=== PATIENT | female | born 1995 | race Caucasian/White ===

== ENCOUNTER 2016-10-13 06:00 | Inpatient (IN) | payer BC ==
[2016-10-20] MEDS ORDERED: OXYTOCIN 10 UNIT/ML 1 ML VIAL IM PRN (06:55)
[2016-10-20] MEDS ORDERED: TERBUTALINE 1 MG/ML VIAL SQ PRN (06:55)
[2016-10-20] MEDS ORDERED: LIDOCAINE 1% (PF) 10 MG/ML (30 ML SDV) SQ PRN (06:55)
[2016-10-20] MEDS ORDERED: METHYLERGONOVINE 0.2 MG/ML 1 ML AMP IM PRN (06:55)
[2016-10-20] MEDS ORDERED: CARBOPROST TROMETHAMINE 250 MCG/ML 1 ML AMP IM PRN (06:55)
[2016-10-20] MEDS ORDERED: PENICILLIN G POTASSIUM 5,000,000 UNIT in DEXTROSE 5% IN WATER 100 ML IV STA ×2 (06:55)
[2016-10-20] MEDS: LACTATED RINGERS 1,000 ML IV SCH ×2 (07:00→09:08)
[2016-10-20] MEDS ORDERED: OXYTOCIN 30 UNITS/500 ML NS 30 UNIT in SALINE 1 500ML.BAG IV SCH ×2 (07:00→15:30)
[2016-10-20 07:08] LABS: Basophils # (A) 0.1 k/uL (0-0.2); Basophils % (A) 1 %; CH 22.3; CHCM 32.2; Eosinophils # (A) 0.3 k/uL (0-0.7); Eosinophils % (A) 2 %; HDW 3.72; HGB 10.3 gm/dL (11.4-16.0); Hypochromasia Moderate; Luc # (Auto) 0.19; Luc % (Auto) 1; Lymphocytes # (A) 2.2 k/uL (1.0-4.8); Lymphocytes % (A) 15 %; MCH 21.8 pg (25.0-35.0); MCHC 31.2 g/dL (31.0-37.0); MCV 69.8 fL (80.0-100.0); Microcytosis Moderate; Monocytes # (A) 0.7 k/uL (0-1.0); Monocytes % (A) 5 %; Neutrophils # (A) 11.3 k/uL (1.3-7.7); Neutrophils % (A) 77 %; Poikilocytosis Slight; RBC 4.73 m/uL (3.80-5.40); RDW 14.5 % (11.5-15.5); WBC 14.8 k/uL (3.8-10.6); WBC (Perox) 15.21
[2016-10-20 07:27] VITALS: BMI 30.4
[2016-10-20] MEDS ORDERED: fentaNYL (PF) 50 MCG/ML 5 ML AMP ONE (08:47)
[2016-10-20] MEDS ORDERED: ePHEDrine 50 MG/ML 1 ML AMP ONE (08:47)
[2016-10-20] MEDS ORDERED: SODIUM CHLORIDE 0.9% 100 ML BAG ONE (08:47)
[2016-10-20] MEDS ORDERED: BUPIVACAINE (PF) 0.25% 30 ML VIAL ONE (08:47)
[2016-10-20] MEDS ORDERED: BUPIVACAINE (PF) 0.25% 25 ML, fentaNYL (PF) 200 MCG in SODIUM CHLORIDE 0.9% 71 ML EPIDURAL ONE (09:07)
[2016-10-20] MEDS: PENICILLIN G POTASSIUM 2,500,000 UNIT in DEXTROSE 5% IN WATER 100 ML IV SCH ×6 (11:19→19:57)
[2016-10-20] MEDS ORDERED: BENZOCAINE/MENTHOL SPRAY 1 GM/SPRAY AEROSOL TOPICAL PRN ×2 (15:06→15:23)
[2016-10-20] MEDS ORDERED: diphenhydrAMINE 50 MG CAP PO PRN (15:23)
[2016-10-20] MEDS ORDERED: HYDROCORTISONE 2.5% RECTAL CREAM 30 GM TUBE RECTAL PRN (15:23)
[2016-10-20] MEDS ORDERED: diphenhydrAMINE 25 MG CAP PO PRN (15:23)
[2016-10-20] MEDS ORDERED: ZOLPIDEM 5 MG TAB PO PRN (15:23)
[2016-10-20] MEDS ORDERED: MEASLES-MUMPS-RUBELLA VACC/PF 12,500 UNIT/0.5 ML VIAL SQ ONE (15:23)
[2016-10-20] MEDS ORDERED: WITCH HAZEL 1 EACH MED..PAD TOPICAL PRN (15:23)
[2016-10-20] MEDS ORDERED: diphenhydrAMINE 50 MG/ML 1 ML VIAL IVP PRN ×2 (15:23)
[2016-10-20] MEDS ORDERED: LANOLIN CREAM 5 GM TUBE TOPICAL PRN (15:23)
[2016-10-20] MEDS ORDERED: SIMETHICONE 80 MG CHEWABLE PO PRN (15:23)
[2016-10-20] MEDS ORDERED: Acetaminophen-Codeine 300-30mg TAB PO PRN (15:23)
[2016-10-20] MEDS ORDERED: ACETAMINOPHEN TAB 325 MG TAB PO PRN (15:23)
--- NOTE | 2016-10-20 15:23 | P.HPOB ---
History of Present Illness H&P Date: 10/20/16 Chief Complaint: 40-2/7 weeks induction, early labor The patient is a 21-year-old 1 para 0 admitted at 40-2/7 weeks as established by last menstrual period and confirmed by 9 week ultrasound. She is admitted for induction of labor but is found actually be in early labor as her cervix is Jose dilated to 6-7 cm. 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 She additionally is known to be rubella nonimmune. Lastly she was found to have group B strep and therefore will require antibody prophylaxis. On labor and delivery, all signs are reassuring. Obstetrical history: 1 para 0 with current statistics listed in history of present illness. EDC of 10/18/2016 was established by last menstrual period and confirmed by 19 week ultrasound. Laboratory workup done traits of blood type of A+ with a negative antibody screen. Again she is known to carry the trait for beta thalassemia minor and as result, has subsequent anemia and her labs. Remainder of the laboratory workup was within normal limits aside from rubella status being nonimmune. One hour Glucola was normal and group B strep status is positive. Gynecologic history: Unremarkable with no history of any infections to include STDs. Review of Systems Review of systems is confined to history of present illness. Past Medical History Additional Past Medical History / Comment(s): ADHD, thalassemia carrier History of Any Multi-Drug Resistant Organisms: None Reported Additional Past Surgical History / Comment(s): 2010 ovarian cyst removal. Past Anesthesia/Blood Transfusion Reactions: No Reported Reaction Past Psychological History: ADD/ADHD Smoking Status: Current every day smoker Past Alcohol Use History: None Reported Past Drug Use History: None Reported - Past Family History Mother Family Medical History: Diabetes Mellitus, Hyperlipidemia Additional Family Medical History / Comment(s): Hypothyroidism after goiter removal Medications and Allergies Home Medications Medication Instructions Recorded Confirmed Type Dextroamphetamine/Amphetamine 30 mg PO QAM 10/16/16 10/20/16 History [Adderall Xr] Lansoprazole [Prevacid] 15 mg PO DAILY 10/16/16 10/20/16 History Vit No.78/Iron/FA [Pretab 1 tab PO DAILY 10/16/16 10/20/16 History 29 mg-1 mg Tablet] Allergies Allergy/AdvReac Type Severity Reaction Status Date / Time No Known Allergies Allergy Verified 10/20/16 06:53 Exam - Vital Signs Vital signs: Vital Signs Temp Pulse Resp BP 10/20/16 06:51 97.6 F 108 H 17 131/69 Intake and Output 10/20/16 10/20/16 10/20/16 06:59 14:59 22:59 Output Total 100 Balance -100 Output: Urine 100 Other: Weight 84.368 kg In general, this is a well-developed, well-nourished white female in no acute distress. Her heart has a regular rhythm and rate without murmur. Her lungs are clear to auscultation bilaterally in all dorman. Her abdomen is gravid, nondistended, has normal active bowel sounds, is soft, nontender, and without any palpable masses aside from the uterine fundus. Her extremities are without any cyanosis, clubbing, or edema and are nontender to palpation bilaterally. Digital cervical examination at admission demonstrates her cervix to be 6-7 cm dilated, 70% effaced, the vertex in presentation at -2-3 station. Artificial rupture of membranes is carried out demonstrating copious amounts of clear fluid. Results Result Diagrams: 10/20/16 07:00 Abnormal Lab Results - Last 24 Hours (Table) 10/20/16 Range/Units 07:00 WBC 14.8 H (3.8-10.6) k/uL Hgb 10.3 L (11.4-16.0) gm/dL Hct 33.0 L (34.0-46.0) % MCV 69.8 L (80.0-100.0) fL MCH 21.8 L (25.0-35.0) pg Neutrophils # 11.3 H (1.3-7.7) k/uL Assessment and Plan (1) Post-dates Status: Acute (2) Active labor Status: Acute (3) Group B streptococcal infection during Status: Acute Plan: The patient is admitted for active management of labor. Pitocin augmentation has been started per protocol and that she is found to be fairly advanced in dilation. Artificial rupture of membranes is carried out. She will have close maternal and surveillance and expectant management will be practiced. She has requested and will receive an epidural catheter for analgesia. Antibiotic prophylaxis for group B strep has also been started.
--- NOTE | 2016-10-20 15:28 | P.PROBDLV ---
Vaginal Delivery Note - . Vaginal Delivery Note: The patient is a 21-year-old 1 para 0 admitted at 40-2/7 weeks by good dating parameters perches admitted for induction of labor but found to be in early active labor with all signs reassuring. She does carry the diagnosis of beta thalassemia minor which has created some degree of anemia for which she is asymptomatic. Her has otherwise been uncomplicated and she is also known to be rubella nonimmune and carries a diagnosis of group B strep colonization as well. On labor and delivery, she had Pitocin augmentation started followed with antibody prophylaxis for group B strep. She underwent artificial rupture of membranes demonstrating a large amount of clear fluid. She made fairly slow progress after rupture of membranes but ultimately progressed to complete and +1 station. She pushed over the course of approximately 30 minutes to a normal spontaneous vaginal delivery of a viable 8 lbs. 8 oz. baby girl with Apgars of 8 at 1 minute and 9 at 5 minutes delivered in the left occiput anterior position. The placenta was delivered spontaneously , intact, and grossly normal although it was also very large. There was additionally a very large centrally and velamentously inserted three-vessel cord. A second-degree midline perineal laceration of been cut for the delivery and was repaired in standard fashion using 3-0 chromic catgut without difficulty. Estimated blood loss for the case was approximately 250 mL. There were no complications. All sponge, instrument, and needle counts are correct. Both mother and are resting comfortably in recovery.
[2016-10-20] MEDS: Acetaminophen-Codeine 300-30mg TAB PO PRN (16:32)
[2016-10-20] MEDS: IBUPROFEN 600 MG TAB PO PRN (19:32)
[2016-10-20] MEDS: SENNOSIDES-DOCUSATE SODIUM 1 EACH TAB PO SCH (20:21)
[2016-10-21] MEDS: IBUPROFEN 600 MG TAB PO PRN ×2 (02:36→08:48)
--- NOTE | 2016-10-21 08:36 | P.DS ---
Providers Date of admission: 10/20/16 06:39 Expected date of discharge: 10/21/16 Attending physician: Francis Ibarra Primary care physician: Stated None - Discharge Diagnosis(es) (1) Post-dates Current Visit: Yes Status: Acute (2) Active labor Current Visit: Yes Status: Acute (3) Group B streptococcal infection during Current Visit: Yes Status: Acute Hospital Course: The patient is a 21-year-old 1 para 0 admitted at 40-2/7 weeks by good dating parameters. She is admitted for induction of labor but was found to actually already being in labor as her cervix was dilated to approximately 6-7 cm. Her was uncomplicated though she was a carrier of beta thalassemia minor and is rubella nonimmune. Additionally she was found to be group B strep carrier read as result, she had antibody prophylaxis started along with Pitocin augmentation. She underwent artificial rupture of membranes of a significant amount of clear fluid. She remains 6-7 cm dilated for the entire morning and into the early afternoon after which time she did progress to complete and then pushed to a normal spontaneous vaginal delivery of a viable 8 lbs. 8 oz. baby girl with Apgars of 8 at 1 minute and 9 at 5 minutes. Her course was unremarkable with vital signs remaining stable and her temperature was afebrile throughout. She was deemed stable for discharge by day #1 was discharged home to follow-up in the office in 6 weeks' time routinely. Discharge instructions included calling for any significantly increased bleeding or foul-smelling lochia, significantly increased fever abdominal pain, perineal complaints, breast complaints, or anything else that concerned her. She was additionally instructed to have nothing in the vagina for at least 6 weeks time to include intercourse. She understood her instructions and agrees to follow up as noted above. Discharge medications included continued vitamins as she has opted to breast-feed. She additionally was provided with a prescription for Tylenol 3, 1-2 by mouth every 6 hours when necessary pain, #20 dispensed with no refills. She will additionally use [id number] analgesic pain medications as necessary. She was less than provided with a prescription for a dual electric breast pump. Maternal blood type is A+ and rubella status is nonimmune. As result she was to receive the MMR vaccination prior to discharge. Procedures: #1. Pitocin augmentation #2. Antibiotic prophylaxis #3. Artificial rupture of membranes #4. Epidural analgesia #5. Normal spontaneous vaginal delivery # 6. Second-degree midline episiotomy and repair Patient Condition at Discharge: Good Plan - Discharge Summary Discharge Medication List Dextroamphetamine/Amphetamine [Adderall Xr] 30 mg PO QAM 10/16/16 [History] Lansoprazole [Prevacid] 15 mg PO DAILY 10/16/16 [History] Vit No.78/Iron/FA [Pretab 29 mg-1 mg Tablet] 1 tab PO DAILY 10/16/16 [ History] Follow up Appointment(s)/Referral(s): Francis Ibarra MD [STAFF PHYSICIAN] - 6 Weeks Discharge Disposition: HOME SELF-CARE
[2016-10-21] MEDS: SENNOSIDES-DOCUSATE SODIUM 1 EACH TAB PO SCH (08:47)
[2016-10-21 09:31] VITALS: BP 112/62; PULSE 86; RESP 20; TEMP 98
[2016-10-21] MEDS: Acetaminophen-Codeine 300-30mg TAB PO PRN (12:37)
== END 2016-10-21 17:10 | disposition home or self-care (01) | DRG 774 ==
LOC: 4FBP 10-20 06:39
PROVIDERS: ADMIT Obstetrics & Gynecology; ATTEND Obstetrics & Gynecology
PROC: 10E0XZZ Delivery of Products of Conception, External Approach (ICD-10-PCS; principal; 2016-10-20)
PROC: 0KQM0ZZ Repair Perineum Muscle, Open Approach (ICD-10-PCS; 2016-10-20)
PROC: 10907ZC Drainage of Amniotic Fluid, Therapeutic from Products of Conception, Via Natural or Artificial Opening (ICD-10-PCS; 2016-10-20)
DX: O48.0 Post-term pregnancy (principal); O99.830 Other infection carrier state complicating pregnancy; O99.344 Other mental disorders complicating childbirth; D64.89 Other specified anemias; O70.1 Second degree perineal laceration during delivery; O99.824 Streptococcus B carrier state complicating childbirth; O99.02 Anemia complicating childbirth; O99.334 Smoking (tobacco) complicating childbirth; F90.9 Attention-deficit hyperactivity disorder, unspecified type; D56.3 Thalassemia minor; Z3A.40 40 weeks gestation of pregnancy; Z37.0 Single live birth
CPT/HCPCS: 85025; 88307; 90707

== ENCOUNTER → 2021-07-31 | Outpatient (CLI) | payer BC ==
--- NOTE | 2021-08-02 18:12 | CT ---
EXAMINATION TYPE: CT thoracic spine w con DATE OF EXAM: 07/31/2021 COMPARISON: None HISTORY: 26-year-old female and 79.89, specified soft tissue disorders. Soft tissue mass T4-T5 level TECHNIQUE: Contiguous axial scanning of the thoracic spine performed with IV Contrast, patient inject ed with 100 mL of Isovue 300. Coronal/sagittal reconstructions performed. CT DLP: 1266 mGycm Automated exposure control for dose reduction was used. FINDINGS: Nonspecific 7 mm hypodensity right liver lobe, probable cyst. Small hilar splenule. Vertebral body heights are preserved and alignment is maintained. Disc interspaces are maintained. No evidence canal compromise. Accentuated kyphosis at the thoracal lumbar junction. No discrete soft tissue abnormalities identified with particular attention to the T4-T5 level. IMPRESSION: NO SPECIFIC ABNORMALITY SEEN. IF PERSISTENT CONCERN FOR SOFT TISSUE MASS, THE EXAM CAN BE REVIEWED WI TH DIRECTED ATTENTION.
== END | disposition home or self-care (01) ==
LOC: RADCTMAIN 15:14
PROVIDERS: ATTEND Family Medicine
DX: M79.89 Other specified soft tissue disorders (principal)
CPT/HCPCS: 72129; Q9967